=== PATIENT | male | born 2000 | race African-American/Black ===

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

== ENCOUNTER 2021-10-27 10:46 | Emergency (ER) | payer OTHER, SELFPAY ==
[2021-10-27] MEDS ORDERED: Ibuprofen 200 MG TAB ONE (12:02)
== END 2021-10-27 12:06 | disposition home or self-care (01) ==
LOC: NAV ERS 10:46
DX: S60.222A Contusion of left hand, initial encounter (principal); V43.53XA Car driver injured in collision with pick-up truck in traffic accident, initial encounter